=== PATIENT | female | born 1975 | race Caucasian/White ===

== ENCOUNTER → 2016-12-15 | Outpatient (CLI) | payer OTHER ==
[~2016-12-15] MED LIST: ABILIFY; CHANTIX PO; GEODAN PO; KEFLEX500 MG PO; KLONOPIN PO; LORTAB 7.5-5001 TAB PO; LUNESTA; MUCINEX DM1 TAB.SR . PO; NEURONTIN PO; NIX59 ML TOP; PROZAC PO
--- NOTE | ~2016-12-15 | MY11 ---
[facility] A Service of [facility] RADIOLOGY TEXT RESULTS PATIENT: LOYDA RAGLAND LOCATION: [facility] : 75 UNIT #: [id number] AGE: [address]: Brigid Cortez MD SEX: F ORDER DR: [id number] [place] [id number] MR#: [id number] Acc #: [id number] NAME: LOYDA RAGLAND : 1975 SEX: F STUDY DATE/TIME: 12/15/2016 11:10 UNIT: [facility] ROOM: STUDY DESCRIPTION: MY Mammogram Screening Dig Coleman Attending Physician: Brigid Cortez M.D. Referring Physician: Brigid Cortez M.D. Ordering Physician: Brigid Cortez M.D. Primary Care Physician: Brigid Cortez M.D. MEDICAL IMAGING REPORT This report is preliminary unless electronic signature is present. EXAM Digital screening mammogram, 12/15/2016, [facility] [place]. HISTORY 41-year-old woman positive family history, paternal grandmother. Prior right breast biopsy 2007. Annual screen. COMPARISON Diagnostic mammogram, 02/04/2008. TECHNIQUE Digital imaging of each breast was completed utilizing screening protocol. Biopsy marker was placed upper outer quadrant right breast. Review includes FDA-approved CAD device. FINDINGS Breast parenchyma is heterogeneously dense with mild focal parenchymal dominance outer hemisphere left breast and deep central right breast. I see no suspicious mass characteristics. There are no interval occurring microcalcifications and no suspicious architectural deformity. IMPRESSION Benign mammogram. Annual screening recommended. Patients over the age of 40 are entered into a reminder system with target due date for the next mammogram. A result letter will also be sent to the patient. BIRADS: 2 Benign finding. [facility] A Service of [facility] RADIOLOGY TEXT RESULTS PATIENT: LOYDA RAGLAND LOCATION: [facility] : 75 UNIT #: [id number] AGE: [address]: Brigid Cortez MD SEX: F ORDER DR: Dictated by... Bill Grullon M.D. THIS IS AN ELECTRONICALLY VERIFIED REPORT Bill Grullon M.D. at 12/15/2016 2:19 PM ANDRADE/lulú TD: 12/15/2016 12:39 JOB #: [id number] MEDICAL IMAGING REPORT Page 1 of 1
== END | disposition home or self-care (01) ==
LOC: SMAM 10:05
DX: Z12.31 Encounter for screening mammogram for malignant neoplasm of breast (principal); Z80.3 Family history of malignant neoplasm of breast; Z98.890 Other specified postprocedural states
CPT/HCPCS: G0202